=== PATIENT | female | born 1975 | race Caucasian/White ===

== ENCOUNTER 2017-09-22 21:02 | Emergency (ER) | payer SELFPAY | END 2017-09-22 21:08 | disposition left against medical advice (07) | LOC: ED 21:02 | DX: Z53.21 Procedure and treatment not carried out due to patient leaving prior to being seen by health care provider (principal) ==

== ENCOUNTER 2018-04-14 21:06 | Emergency (ER) | payer SELFPAY ==
[~2018-04-14] VITALS: Ht 160 cm; Wt 81.6 kg
[2018-04-14 21:13] VITALS: Ht 160 cm; Wt 81.6 kg
[2018-04-14 22:53] VITALS: BP 126/69
== END 2018-04-14 22:50 | disposition home or self-care (01) ==
LOC: ED 21:06
DX: M75.32 Calcific tendinitis of left shoulder (principal); W18.39XA Other fall on same level, initial encounter; Y93.89 Activity, other specified; Y92.89 Other specified places as the place of occurrence of the external cause; Y99.8 Other external cause status
CPT/HCPCS: J1885